=== PATIENT | male | born 1995 | race Caucasian/White ===

== ENCOUNTER 2017-09-15 18:00 | Emergency (ER) | payer OTHER ==
[2017-09-15] MEDS ORDERED: Sodium Chloride 0.9% 10 ML Syringe FLUSH PRN (18:07)
[2017-09-15] MEDS ORDERED: Morphine 4 MG/ML Syringe IVPUSH ONE (18:07)
[2017-09-15] MEDS ORDERED: Ondansetron 4 MG/2 ML SDV IVPUSH ONE (18:07)
--- NOTE | 2017-09-15 18:15 | EDM.PDOC ---
ED HPI GENERAL MEDICAL PROBLEM - General Stated Complaint: POSSIBLE DISL. L SHOULDER Time Seen by Provider: 09/15/17 18:00 Source of Information: Reports: Patient, Family History Limitations: Reports: No Limitations - History of Present Illness INITIAL COMMENTS - FREE TEXT/NARRATIVE: 22 years old riki go came to the ed after he was attempting to push up a garage door when he suddenly heard a pup and had pain in his left shoulder, unable to abduct left arm. He denied a direct trauma. He dislocated his left shoulder once in the past. No other acute medical issue. Last food intake at lunch today. BP 158/81 pulse 74 RR 18 Pulse ox 98% Temp 37.7 Onset: Today Onset Date: 09/15/17 Onset Time: 17:00 Duration: Getting Worse, Intermittent Location: Reports: Upper Extremity, Left Quality: Reports: Ache, Dull, Pressure, Stabbing, Throbbing Severity: Moderate Improves with: Reports: Rest Worsens with: Reports: Movement Associated Symptoms: Reports: No Other Symptoms Left Shoulder Pain Score (Numeric/FACES): 10 - Related Data Allergies Allergy/AdvReac Type Severity Reaction Status Date / Time No Known Allergies Allergy Verified 09/15/17 18:31 Home Meds: Home Meds NK [No Known Home Meds] 09/15/17 [History] ED ROS GENERAL - Review of Systems Review Of Systems: See Below Constitutional: Reports: No Symptoms HEENT: Reports: No Symptoms Respiratory: Reports: No Symptoms Cardiovascular: Reports: No Symptoms Endocrine: Reports: No Symptoms GI/Abdominal: Reports: No Symptoms : Reports: No Symptoms Musculoskeletal: Reports: Shoulder Pain (left) Skin: Reports: No Symptoms Neurological: Reports: No Symptoms Psychiatric: Reports: No Symptoms Hematologic/Lymphatic: Reports: No Symptoms Immunologic: Reports: No Symptoms ED EXAM, UPPER BACK/NECK PAIN - Physical Exam Exam: See Below Exam Limited By: No Limitations General Appearance: Alert, WD/WN, Moderate Distress Eye Exam: Bilateral Eye: Normal Inspection Ears Exam: Normal External Exam Nose Exam: Normal Inspection Throat/Mouth Exam: Normal Inspection, Normal Lips Head Exam: Atraumatic, Normocephalic Neck Exam: Non-Tender, Full Range of Motion, Normal Alignment, Normal Inspection Cardiovascular/Respiratory: Regular Rate, Rhythm, No M/R/G, Normal Peripheral Pulses, Normal Breath Sounds, No Respiratory Distress GI/Abdominal: Normal Bowel Sounds, Soft, Non-Tender, No Organomegaly, No Distention, No Abnormal Bruit, No Mass, Pelvis Stable (Male) Exam: No Hernia Rectal (Males) Exam: Deferred Back Exam: Normal Inspection, Full Range of Motion Extremities: Normal Capillary Refill, Joint Swelling (left shoulder), Limited Range of Motion (left shoulder) Neurologic: client director II-XII nml As Tested, No Motor/Sensory Deficits Psychiatric: Normal Affect, Normal Mood Skin Exam: Normal Color, Warm/Dry Lymphatic: No Adenopathy ED LACERATION/WOUND PROCEDURES - Joint Reduction Site: Shoulder (L) Sedation: Conscious Sedation (Morphine 9 mg i.v /Versed 2 mg i.v.) Pre-procedure NV status: Normal Post-procedure NV status: Normal Technique: Traction/Counter Traction Number of Attempts: 1 Post-Reduction Imaging: Completely Reduced Joint Reduction Complications: No Course - Vital Signs Text/Narrative:: 22 years old w abbi came to the ed after he was attempting to push up a garage door when he suddenly heard a pup and had pain in his left shoulder, unable to abduct left arm. He denied a direct trauma. He dislocated his left shoulder once in the past. No other acute medical issue. Last food intake at lunch today. BP 158/81 pulse 74 RR 18 Pulse ox 98% Temp 37.7 PE: deformed left shoulder with LROM, cap refill < 2 sec, no open wound Imagin) Left shoulder: Anterior dislocation 2) left shoulder: Anterior dislocation, fully reduced Procedure: See note above: I V was started at his right forearm, total of 9 mg of MS, Zofran 8 mg and a total of 4 mg Versed were give till the patient did not open his eyes by verbal stimuli. NRM as applied during the procedure. Left shoulder was reduced at once with the traction/counter traction method. There was no complication. Pt received 1 liter of NS. Pt vitals were stable during the procedure. Left shoulder immobilizer was applied. Pt was ambulating fine. He was in his usual state of health on D/C Impression: Left anterior shoulder dislocation, reduced in the ed Tx: Morphine, Versed, Zofran and NS Reexam: Improved, Pt was in his usual state of health on D/C with the left shoulder immobilizer in place. BP 143/87 pule 90 Pulse ox 99% on RA Plan: D/C with instructions. Last Recorded V/S: Last Vital Signs Temp 37.7 C 09/15/17 18:31 Pulse 74 09/15/17 18:31 Resp 18 09/15/17 18:31 BP 150/81 H 09/15/17 18:31 Pulse Ox 97 09/15/17 18:31 - Orders/Labs/Meds Orders: Active Orders 24 hr Category Date Time Status Shoulder 1V Lt [CR] Stat Exams 09/15/17 18:03 Taken Shoulder 1V Lt [CR] Stat Exams 09/15/17 19:12 Taken Sodium Chloride 0.9% [Normal Saline] 1,000 ml Med 09/15/17 19:20 Active IV .BOLUS Sodium Chloride 0.9% [Saline Flush] Med 09/15/17 18:07 Active 10 ml FLUSH ASDIRECTED PRN Peripheral IV Insertion Adult [OM.PC] Routine Oth 09/15/17 18:07 Ordered Medication Orders Sodium Chloride (Normal Saline) 1,000 mls @ 999 mls/hr IV .BOLUS ONE Stop: 09/15/17 20:20 Last Admin: 09/15/17 19:24 Dose: 999 mls/hr Sodium Chloride (Saline Flush) 10 ml FLUSH ASDIRECTED PRN PRN Reason: Keep Vein Open Last Admin: 09/15/17 18:24 Dose: 10 ml Meds: Medications Generic Name Dose Route Start Last Admin Trade Name Freq PRN Reason Stop Dose Admin Sodium Chloride 1,000 mls @ 999 mls/hr 09/15/17 19:20 09/15/17 19:24 Normal Saline IV 09/15/17 20:20 999 mls/hr .BOLUS ONE Administration Sodium Chloride 10 ml 09/15/17 18:07 09/15/17 18:24 Saline Flush FLUSH 10 ml ASDIRECTED PRN Administration Keep Vein Open Discontinued Medications Generic Name Dose Route Start Last Admin Trade Name Freq PRN Reason Stop Dose Admin Midazolam HCl 2 mg 09/15/17 18:45 09/15/17 18:56 Versed 1 Mg/Ml IVPUSH 09/15/17 18:46 2 mg ONETIME ONE Administration Midazolam HCl 2 mg 09/15/17 19:00 09/15/17 19:05 Versed 1 Mg/Ml IVPUSH 09/15/17 19:01 2 mg ONETIME ONE Administration Morphine Sulfate 4 mg 09/15/17 18:07 09/15/17 18:29 Morphine IVPUSH 09/15/17 18:08 4 mg ONETIME ONE Administration Morphine Sulfate 5 mg 09/15/17 18:45 09/15/17 18:58 Morphine IVPUSH 09/15/17 18:46 5 mg ONETIME ONE Administration Ondansetron HCl 8 mg 09/15/17 18:07 09/15/17 18:25 Zofran IVPUSH 09/15/17 18:08 8 mg ONETIME ONE Administration Departure - Departure Time of Disposition: 20:15 Disposition: Home, Self-Care 01 Condition: Good Clinical Impression: Dislocation of left shoulder joint Qualifiers: Encounter type: subsequent encounter Qualified Code(s): S43.005D - Unspecified dislocation of left shoulder joint, subsequent encounter - Discharge Information Referrals: Harvinder Souza MD [Primary Care Provider] - Forms: ED Return to Work/School Form Additional Instructions: Please apply ICE to the affected area, please take motin for pain as needed, please f/u with orth in next 3 days. Shoulder immomilizer should be take off by your PMD or orthopedic surgeon Dr. Satya Gee this Tuesday. Please come back if your symptoms get worse acutely . - My Orders Last 24 Hours: My Active Orders 09/15/17 18:03 Shoulder 1V Lt [CR] Stat 09/15/17 18:07 Sodium Chloride 0.9% [Saline Flush] 10 ml FLUSH ASDIRECTED PRN Peripheral IV Insertion Adult [OM.PC] Routine 09/15/17 19:12 Shoulder 1V Lt [CR] Stat 09/15/17 19:20 Sodium Chloride 0.9% [Normal Saline] 1,000 ml IV .BOLUS - Assessment/Plan Last 24 Hours: My Active Orders 09/15/17 18:03 Shoulder 1V Lt [CR] Stat 09/15/17 18:07 Sodium Chloride 0.9% [Saline Flush] 10 ml FLUSH ASDIRECTED PRN Peripheral IV Insertion Adult [OM.PC] Routine 09/15/17 19:12 Shoulder 1V Lt [CR] Stat 09/15/17 19:20 Sodium Chloride 0.9% [Normal Saline] 1,000 ml IV .BOLUS
[2017-09-15] MEDS ORDERED: Morphine 10 MG/ML Syringe IVPUSH ONE (18:45)
[2017-09-15] MEDS ORDERED: Midazolam 1 MG/ML 2 ML SDV IVPUSH ONE ×2 (18:45→19:00)
[2017-09-15] MEDS ORDERED: Sodium Chloride 0.9% 1,000 ML IV ONE (19:20)
--- NOTE | 2017-09-16 11:24 | CR ---
INDICATION: Pain and deformity. LEFT SHOULDER: Frontal and "Y" views of the left shoulder were obtained, revealing an anterior/inferior dislocation at the glenohumeral joint. No definite fracture site or other bony abnormality was identified. IMPRESSION: Anterior/inferior dislocation at the glenoid joint. MTDD
--- NOTE | 2017-09-16 11:25 | CR ---
INDICATION: Post reduction assessment left shoulder. LEFT SHOULDER: Portable frontal and "Y" views of the left shoulder were obtained and now reveal the glenohumeral joint to have been satisfactorily reduced with position and alignment of the glenoid and humerus appearing normal , without evidence of a fracture or dislocation identified. IMPRESSION: Satisfactory post reduction appearance obtained portable left shoulder. BEBE
== END 2017-09-15 20:25 | disposition home or self-care (01) ==
LOC: FB.ED 18:00
DX: S43.005A Unspecified dislocation of left shoulder joint, initial encounter (principal); X50.1XXA Overexertion from prolonged static or awkward postures, initial encounter; Y93.89 Activity, other specified
CPT/HCPCS: 23650; 73020; 96361; 96374; 96375; 99283; J2250; J2270; J2405; J7040; J7050